=== PATIENT | female | born 1995 | race Caucasian/White ===

== ENCOUNTER 2021-01-09 09:02 | Emergency (ER) | payer BC, SELFPAY ==
[2021-01-09 09:05] VITALS: BP 143/96; PULSE 94; RESP 18; TEMP 36.6; O2SAT 98
[2021-01-09 09:35] VITALS: O2SAT 98
[2021-01-09 10:35] VITALS: BP 145/94; PULSE 89; RESP 14; O2SAT 97
--- NOTE | 2021-01-09 10:35 | ED.DENTAL ---
HPI - Dental/Oral General Chief complaint: Dental/Oral Stated complaint: dental pain Time Seen by Provider: 01/09/21 09:49 Source: patient Mode of arrival: ambulatory Limitations: no limitations History of Present Illness HPI Narrative: This is a 25-year-old female that presents the emergency department for allergic reaction. Reports she had just used her chlorhexidine rinse this morning. Reports this was a little after 8:00. Reports shortly after that she noted feeling of swelling in her throat. Reports she started to feel as if it was difficult to breathe. Reports she had wheezing. She took 50 mg of Benadryl on her way to the ER with relief of symptoms. Does report history of anaphylactic reactions in the past. Denies fever, vomiting, rash, or diarrhea. Patient is currently on clindamycin for dental infection of tooth #7. Has an appointment with an stock clipper tomorrow for this. MD Complaint: tooth pain Location: Tooth # (7) Related Data Home Medications Medication Instructions Recorded Confirmed cetirizine 10 mg tablet 10 mg PO DAILY 06/22/20 08/31/20 epinephrine 0.3 mg/0.3 mL 0.3 mg IM ONCE 06/22/20 08/31/20 injection, auto-injector zolpidem 5 mg tablet 5 mg PO .hs tablet 06/22/20 08/31/20 Allergies Allergy/AdvReac Type Severity Reaction Status Date / Time azithromycin Allergy Hives Verified 01/09/21 09:15 Review of Systems Review of Systems: Narrative: CONSTITUTIONAL: Denies fever ENT: Reports dentalgia CARDIOVASCULAR: Denies chest pain RESPIRATORY: Reports dyspnea. GASTROINTESTINAL: Denies vomiting, or diarrhea. All systems reviewed & are unremarkable except as noted in HPI and below PMFSH Past Medical History Medical History Allergies Anxiety Arthritis Depression Heart burn Family History Family History Father Hypertension Diabetes mellitus Grandparent , Heart/Lung Conditions No problems noted. Grandparent , Heart/Lung Conditions Diabetes mellitus Social History Social History Smoking status: Never smoker Second hand tobacco smoke exposure: No Alcohol intake: current Drinks per week: 1 Substance use: never Substance use type: does not use Gender identity (if verbalized by the patient): Female Exam Narrative: Exam Narrative: GENERAL: Well-appearing, well-nourished, and in no acute distress. HEAD: Normocephalic, atraumatic. EYES: EOMI. ENT: Nares clear, no rhinorrhea or epistaxis. Mucous membranes moist. Oropharynx without tonsillar hypertrophy exudate or other lesions. Tooth number 7 with edema with central fluctuance, tender to palpation NECK: Supple. No adenopathy or masses. CHEST: Clear to auscultation. No respiratory distress. No wheezes rales or rhonchi HEART: Regular rate and rhythm. No murmur heard. Normal peripheral pulses. EXTREMITIES: Normal range of motion. No edema. SKIN: Warm, dry, no rash. NEURO: No focal deficits. Alert and oriented x3. PSYCH: Normal mood and affect Course Vital Signs Vital signs: Vital Signs Temperature 97.9 F 01/09/21 09:05 Pulse Rate 94 01/09/21 09:05 Respiratory Rate 18 01/09/21 09:05 Blood Pressure 143/96 H 01/09/21 09:05 Pulse Oximetry 98 01/09/21 09:05 Temperature 97.9 F 01/09/21 09:05 Pulse Rate 89 01/09/21 10:35 Respiratory Rate 14 01/09/21 10:35 Blood Pressure 145/94 H 01/09/21 10:35 Pulse Oximetry 97 01/09/21 10:35 MDM - Dental/Oral MDM Narrative Medical decision making narrative: Patient presents the emergency department for allergic reaction today. Reports she is currently on clindamycin for dental infection. She had just used chlorhexidine rinse and after this started to feel short of breath and that there was swelling in her throat. She took 50 mg of Benadryl wit
[2021-01-09] MEDS: FAMOTIDINE 20 MG/2 ML VIAL IV PUSH (10:44)
[2021-01-09] MEDS: EPINEPHrine HCL INJ 1 MG/ML AMPUL 0.3 MG IM (10:44)
[2021-01-09] MEDS: methylPREDNISolone SOD SUCC 125 MG VIAL IV PUSH (10:44)
[2021-01-09 13:00] VITALS: BP 139/85; PULSE 73; RESP 16; O2SAT 99
== END 2021-01-09 13:00 | disposition home or self-care (01) ==
PROVIDERS: Emergency Provider Emergency Medicine; PCP Internal Medicine
DX: T78.40XA Allergy, unspecified, initial encounter (principal); K04.7 Periapical abscess without sinus
CPT/HCPCS: 96372; 96374; 96375; 99284; J0171; J2930

== ENCOUNTER 2022-08-28 11:39 | Emergency (ER) | payer BC, SELFPAY ==
[2022-08-28 11:45] VITALS: BP 125/72; PULSE 93; RESP 16; TEMP 36.6; O2SAT 94
--- NOTE | 2022-08-28 13:26 | ED.URI ---
HPI - URI/Sore Throat General Chief Complaint: Upper Respiratory Infection Stated Complaint: Cough/Shortness of Breath Time Seen by Provider: 08/28/22 13:26 Source: patient and RN notes reviewed Mode of arrival: ambulatory Limitations: no limitations History of Present Illness HPI Narrative: 26-year-old female presented for complaint of cough over the last 3 days. She has a history of asthma endorses more shortness of breath with exertion. She has an albuterol inhaler which she has been using with improvement. She also endorses some nausea and vomiting at the onset of symptoms which has improved. She currently denies nausea, vomiting, diarrhea, fever or chills at this time. Taking DayQuil and NyQuil for symptoms. MD elicited complaint: cough Related Data Home Medications Medication Instructions Recorded Confirmed cetirizine 10 mg tablet (Zyrtec) 10 mg PO DAILY 06/22/20 08/28/22 epinephrine 0.3 mg/0.3 mL 0.3 mg IM ONCE 06/22/20 08/28/22 injection, auto-injector (EpiPen 2-Jon) zolpidem 5 mg tablet (Ambien) 5 mg PO .hs 06/22/20 08/28/22 albuterol sulfate 90 mcg/actuation 1 puff inhalation Q4H PRN sob 08/22/21 08/28/22 aerosol inhaler fluticasone furoate 100 1 inh inhalation DAILY 08/22/21 08/28/22 mcg-vilanterol 25 mcg/dose inhalation powder (Breo Ellipta) buspirone 10 mg tablet 20 mg PO BID 12/28/21 08/28/22 Allergies Allergy/AdvReac Type Severity Reaction Status Date / Time azithromycin Allergy Hives Verified 08/28/22 12:45 Review of Systems Review of Systems: ROS per HPI [facility] Past Medical History Medical History Allergies Anxiety Arthritis Depression Heart burn Family History Family History Father Hypertension Diabetes mellitus Grandparent , Heart/Lung Conditions No problems noted. Grandparent , Heart/Lung Conditions Diabetes mellitus Social History Social History Smoking status: Never smoker Second hand tobacco smoke exposure: No Alcohol intake: current Drinks per week: 1 Alcohol use details: wine, Substance use: never Substance use type: does not use Gender identity (if verbalized by the patient): Female Exam Narrative: GENERAL: well-appearing EYES: PERRLA, conjunctivae clear ENT: Mucous membranes moist. TM pearly sparks with dull light reflex bilaterally; no tragal tenderness. CHEST: Clear to auscultation, breath sounds equal. No wheezing, rhonchi, rales, or stridor. HEART: Regular rate and rhythm. No murmur heard. SKIN: Warm, dry, no rash. NEURO: Alert and oriented x3. PSYCH: Normal mood and affect Course Course Emergency Course: Patient is aware of diagnosis, understands and agrees to treatment plan. Anticipatory guidance given. Patient agrees to follow-up as directed and is aware of reasons to seek care at the emergency department. Portions of this record may have been created with voice recognition software Level of Care: Express Care Visit Vital Signs Vital signs: Vital Signs Temperature 97.8 F 08/28/22 11:45 Pulse Rate 93 08/28/22 11:45 Respiratory Rate 16 08/28/22 11:45 Blood Pressure 125/72 08/28/22 11:45 Pulse Oximetry 94 08/28/22 11:45 Oxygen Delivery Room Air 08/28/22 11:45 Temperature 97.8 F 08/28/22 11:45 Pulse Rate 93 08/28/22 11:45 Respiratory Rate 16 08/28/22 11:45 Blood Pressure 125/72 08/28/22 11:45 Pulse Oximetry 94 08/28/22 11:45 Oxygen Delivery Room Air 08/28/22 11:45 reviewed MDM - URI/Sore Throat MDM Narrative Medical decision making narrative: Advised supportive measures and signs/symptoms to go to the ER. Pt is appropriate for outpt treatment and f/u. Differential Diagnosis Differential diagnosis: Likely upper respiratory infection, sinusitis and viral infect
== END 2022-08-28 13:35 | disposition home or self-care (01) ==
PROVIDERS: Emergency Provider Nurse Practitioner Family; PCP Family Medicine
DX: B34.9 Viral infection, unspecified (principal); M19.90 Unspecified osteoarthritis, unspecified site; R12 Heartburn; F41.9 Anxiety disorder, unspecified; F32.A Depression, unspecified
CPT/HCPCS: 99213; G0463

== ENCOUNTER → 2022-09-02 09:29 | Outpatient (CLI) | payer BC, SELFPAY ==
--- NOTE | ~2022-09-02 | MR_ITS ---
EXAMINATION: MR pelvis wo/w con DATE: 09/02/2022 10:41 INDICATION: Pelvic and perineal pain. Other specified disorders of urethra. TECHNIQUE: Magnetic resonance imaging (MRI) of the pelvis was performed without and with 20 mL Multih ance intravenous contrast. Fullfield sequences of the pelvis included axial and coronal T2-weighted S S FSE, coronal 2D FIESTA, axial T1-weighted FSPGR, axial dual-echo T1-weighted FSPGR and axial T1 devin ghted LAVA. Small field of view sequences included axial, sagittal and coronal T2-weighted FSE cente red on the uterus and adnexa. Postcontrast sequences included a time course axial T1-weighted LAVA w ith fullfield of view of the pelvis. COMPARISON: None. FINDINGS: Uterus is normal with no signal intensity T-shaped IUD within the endometrial canal. Endometrial comp [place] measures approximately 5 mm in thickness. Cervical T2 hyperintense follicles at the left and righ t ovaries, the largest on the left measuring 1.4 cm. Bladder and urethra are normal. No urethral dive rticulum. Visualized caudal portions of the right hepatic lobe and bilateral kidneys and of the bowel s are unremarkable. Normal appendix. No pathologically enlarged pelvic, inguinal or lower abdominal l ymphadenopathy. Minimal likely physiologic free fluid in the cul-de-sac. Visualized bones are unremar kable with normal marrow signal. IMPRESSION: 1. Normal bladder and urethra with no urethral diverticulum. 2. Minimal likely physiologic free fluid in the pelvis and T-shaped IUD in expected position within t he normal uterus. Reviewed, dictated and finalized at location B. [employer] IMPRESSION: 1. Normal bladder and urethra with no urethral diverticulum. 2. Minimal likely physiologic free fluid in the pelvis and T-shaped IUD in expe cted position within the normal uterus.
== END ==
PROVIDERS: PCP Family Medicine; Visit Provider Nurse Practitioner Obstetrics & Gynecology
DX: N36.8 Other specified disorders of urethra (principal); R10.2 Pelvic and perineal pain
CPT/HCPCS: 72197; A9577